=== PATIENT | female | born 2000 | race Caucasian/White ===

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

== ENCOUNTER 2022-10-03 05:54 | Inpatient (IN) ==
[2022-10-03] MEDS ORDERED: OXYTOCIN 30 UNITS/500 ML BAG IV PRN ×2 (06:11→08:24)
[2022-10-03] MEDS ORDERED: LIDOCAINE 1% LOCAL 20 ML VIAL INFIL PRN (06:11)
[2022-10-03] MEDS ORDERED: LACTATED RINGER'S 1,000 ML IV PRN (06:11)
[2022-10-03 06:40] LABS: Hematocrit (blood only) 32.1 % (34.1-44.9); Hemoglobin 10.1 g/dl (12.0-16.0); Mean Corpuscular Hemoglobin 23.6 pg (25.0-34.0); Mean Corpuscular Hgb Conc 31.5 g/dL (32.0-36.0); Mean Platelet Volume 11.7 fL (9.4-12.3); Platelet Count 239 K/uL (130-400); RDW Coefficient of Variation 15.1 % (11.5-14.5); RDW Standard Deviation 40.3 fL (36.4-46.3); Red Blood Count 4.28 M/uL (3.93-5.22); White Blood Count 10.15 K/ul (4.8-10.8)
--- NOTE | 2022-10-03 07:56 | Delivery Summary ---
Vaginal Delivery Summary Date of Service October 03, 2022 Vaginal Delivery Summary 22yo at term came in with srom at 0430am today and was 3-4cm on arrival, rapidly dilated to complete and pushed to deliver a viable male Apgars 8 and 9 via over intact perineum. Mouth and nose bulb suctioned at perineum. Shoulders and body delivered with ease. was vigorous and crying at . Cord clamped at 30 seconds of life and to maternal abdomen where the cor d was then doubly clamped and cut. Placenta delivered spontaneously and intact, three-vessel cord. Hemostasis achieved with dilute pitocin and uterine massage. Cervix and sulci intact. EBL 300 cc. Mother and baby stable in recovery. Patient's course was uncomplicated. Rhpos/RI/GBS neg. [facility] Vaginal Delivery Charge Delivery Type Details:
[2022-10-03] MEDS ORDERED: OXYTOCIN 20 UNITS in LACTATED RINGER'S 1,000 ML IV SCH (08:24)
[2022-10-03] MEDS ORDERED: BENZOCAINE 20% AER SPR 82.5 GM CAN EXT PRN (08:24)
[2022-10-03] MEDS ORDERED: bisacodyL 10 MG SUPP PR PRN (08:24)
[2022-10-03] MEDS ORDERED: DOCUSATE SODIUM 100 MG CAP PO SCH (08:24)
[2022-10-03] MEDS ORDERED: IBUPROFEN 600 MG TAB PO PRN (08:24)
[2022-10-03] MEDS ORDERED: oxyCODONE/ACETAMINOPHEN 5mg/325mg TAB PO PRN (08:24)
[2022-10-03] MEDS ORDERED: HYDROCORTISONE ACETATE 25 MG SUPP PR PRN (08:24)
[2022-10-03] MEDS ORDERED: DIPHTHERIA/TETANUS/PERTUSSIS 0.5mL SYR/VIAL (Age 7+yrs) IM ONE (08:24)
[2022-10-03] MEDS ORDERED: ACETAMINOPHEN 325 MG TAB PO PRN (08:24)
[2022-10-03] MEDS ORDERED: PRENATAL VITAMIN 1 TAB PO SCH (08:24)
[2022-10-03] MEDS ORDERED: ACETAMINOPHEN SUSP 160 MG/5 ML BTL PO PRN (10:59)
[2022-10-03] MEDS ORDERED: ALLERGY Noted to ORDERED Medication SCH (16:00)
[2022-10-03] MEDS: DOCUSATE SODIUM SYRUP 100 MG/10 ML UDC PO SCH ×2 (18:26→21:39)
[2022-10-03] MEDS: MULTI VIT W/MINERALS LIQUID 15 ML UDP PO SCH (18:26)
--- NOTE | 2022-10-04 07:43 | Obstetrical Progress Note ---
Date of Service <Hannah Orta MD - Last Filed: 10/04/22 08:06> October 04, 2022 Assessment & Plan <Hannah Orta MD - Last Filed: 10/04/22 08:06> (1) care following vaginal delivery: 22 y/o female who presented to [facility] in labor now PPD1 after . Satisfactory progress. Tolerating PO. Encourage ambulation. RI Rh pos No previous paps <Durga Aguilar MD - Last Filed: 10/06/22 08:01> (1) care following vaginal delivery: Subjective <Hannah Orta MD - Last Filed: 10/04/22 08:06> Ambulation: ambulating normally Voiding: no voiding problems Passing Gas:: Yes Diet Tolerance:: regular diet Lochia:: Small Feeding Type:: breast feeding Physical Exam <Hannah Orta MD - Last Filed: 10/04/22 08:06> Constitutional WD/WN, vitals as above Respiratory normal respiratory effort, lungs clear to auscultation Cardiovascular RRR, no murmur, no edema Extremities: no calf tenderness Psychiatric A+Ox3, euthymic affect Genitourinary OB Exam Abdomen: + fundal height (@ the level of the umbilicus) Fundus: + firm Results & Data ([facility]) <Hannah Orta MD - Last Filed: 10/04/22 08:06> Vital Signs (Past 12 Hours) Vital Signs Temp Pulse Resp BP Pulse Ox O2 Del Method 10/04/22 05:52 36.6 C 82 18 101/56 L 99 Room Air 10/03/22 22:56 36.8 C 82 16 106/70 98 Room Air 10/03/22 20:35 36.8 C 97 H 16 107/72 97 Room Air <Durga Aguilar MD - Last Filed: 10/06/22 08:01> Co-Signing Physician Notes Patient seen with resident and agree with the above findings and plan. Routine care. Resident Activity Tracking <Hannah Orta MD - Last Filed: 10/04/22 08:06> Resident Involvement: Resident Care Provided Care Provided: OB Delivery
[2022-10-04] MEDS: MULTI VIT W/MINERALS LIQUID 15 ML UDP PO SCH (08:27)
[2022-10-04] MEDS: DOCUSATE SODIUM SYRUP 100 MG/10 ML UDC PO SCH ×2 (08:28→20:49)
--- NOTE | 2022-10-05 07:47 | Obstetrical Progress Note ---
Date of Service October 05, 2022 Assessment & Plan (1) care following vaginal delivery: satisfactory course continue current care plan wishes to be discharge today if baby discharged Subjective Ambulation: ambulating normally Voiding: no voiding problems Passing Gas:: Yes Diet Tolerance:: regular diet Lochia:: Small Feeding Type:: breast feeding Review of Systems All systems reviewed & are unremarkable except as noted in HPI & below Physical Exam Constitutional WD/WN, vitals as above Psychiatric A+Ox3, euthymic affect Genitourinary OB Exam Abdomen: + fundal height Fundus: + firm and + relation to umbilicus (2 below ) Results & Data ([facility]) Vital Signs (Past 12 Hours) Vital Signs Temp Pulse Resp BP Pulse Ox O2 Del Method 10/04/22 23:18 97.7 F 89 16 117/82 98 Room Air 10/04/22 20:00 97.7 F 89 16 112/73 97 Room Air
[2022-10-05] MEDS: MULTI VIT W/MINERALS LIQUID 15 ML UDP PO SCH (08:24)
[2022-10-05] MEDS: DOCUSATE SODIUM SYRUP 100 MG/10 ML UDC PO SCH (08:24)
--- NOTE | 2022-10-14 07:39 | Coding Query ---
CODING QUERY To promote full compliance with coding requirements relating to patient care, provider participation is requested in all cases of flanging roll operator uncertainty. Please assist us with the question(s) below: Coding Question(s): Please document weeks of gestation Physician's Response(s): 39 weeks Thank you Ida Alex Principal Diagnosis: "that condition established after study, to be chiefly responsible for occasioning the admission of the patient to the hospital for care." Co-Existing Principal Diagnosis: "when two or more diagnoses equally meet the criteria for principal diagnosis as determined by the circumstances of admission, diagnostic work up, and/or therapy provided, and the Alphabetic Index, Tabular List, or another coding guideline does not provide sequencing direction, any one of the diagnoses may be sequenced first." "When the physician has documented what appears to be a current diagnosis in the body of the record, but has not included the diagnosis in the final diagnostic statement, the physician should be asked whether the diagnosis should be added." (Source [facility]oding [facility] 2 QTR90. p3-4) KAREL
== END 2022-10-05 10:25 | disposition home or self-care (01) | DRG 807 ==
LOC: OPB 05:54 → 4S1 05:57 → 4E2 10:45